=== PATIENT | female | born 1965 | race Caucasian/White ===

== ENCOUNTER 2021-06-23 17:08 | Emergency (ER) | payer OTHER ==
[~2021-06-23] VITALS: Ht 152.4 cm; Wt 99.8 kg
[~2021-06-23 17:08] MED LIST: ALPR0.5T2 PO; SIMV40TA1 PO; SYN.05 PO; TRAZ-343 PO; ZOLP10TA1 PO
--- NOTE | 2021-06-23 17:10 | NUR ---
NELDA ALS TO ER BED 2
[2021-06-23 17:23] VITALS: BP 115/62
--- NOTE | 2021-06-23 17:32 | NUR ---
56YO F BIBA C/O RIGHT HIP AND SHOULDER PAIN S/P FALL 45 MINS AGO. PT WAS HAVING PHYSICAL THERAPY FOR DROP FOOT WHEN SHE FELL SIDEWAYS, LANDING ON HER RIGHT HIP AND SHOULDER. PAIN 8/10, SHARP AND CRUSHING IN NATURE. DENIES HEAD TRAUMA, LOC. UNABLE TO INSERT IV, GIVEN 100MCG FENTANYL INTRANASALLY EN ROUTE TO ED. IN ED, VSS. AOX4. CLEAR BREATH SOUNDS. LIMITED ROM, RIGHT SHOULDER. NO SWELLING NOTED. UNABLE TO AMBULATE. PT POSITIONED COMFORTABLY IN BED. ERMD MADE AWARE OF PT STATUS. PMH: DVT BILATERAL LOWER EXTREMITIES, PULMONARY EMBOLISM, DROPFOOT (RIGHT), PELVIC FLOOR DYSSYNERGIA, ASTHMA MEDS: XANAX, NEURONTIN, XARALTO, TRAZADONE ALLERGY: SULFA
[2021-06-23] MEDS ORDERED: MORPHINE SULFATE 5 MG/ML VIAL IM ONE (18:40)
--- NOTE | 2021-06-23 19:13 | NUR ---
REPORT GIVEN TO DACIA ROSARIO. ALL CARE TRANSFERRED AT THIS TIME.
--- NOTE | 2021-06-23 19:13 | NUR ---
REPORT RECEIVED FROM DACIA WHITTINGTON FOR CONTINUITY OF PT CARE. AT THIS TIME.
--- NOTE | 2021-06-23 19:18 | NUR ---
X RAY AT BEDSIDE.
--- NOTE | 2021-06-23 19:23 | NUR ---
PT LAYING FLAT SUPINE FOR COMFORT, IN BED LOCKED IN LOWEST POSITION W X2 SIDERAILS UP FOR PT SAFETY. PT REPORTS PAIN WAS IMPROVING FOLLOWING PAIN MEDICATION ADMINISTRATION BUT BEGAN TO WORSEN UPON BEING MOVED AROUND FOR THE XRAY. PT WILL CONTINUE RESTING SUPINE AND SEE IF PAIN RE-SUBSIZES. WILL MAKE NURSE AWARE IF PAIN IS NOT IMPROVING. BREATHING EVEN AND UNLABORED. NAD NOTED, WILL CONTINUE TO MONITOR.
--- NOTE | 2021-06-23 19:58 | NUR ---
PT C/O PAIN 05/24. ERMD MADE AWARE.
[2021-06-23] MEDS ORDERED: oxyCODONE/APAP 5/325 MG 1 TAB TAB PO ONE (20:00)
[2021-06-23 20:56] VITALS: BP 131/52
--- NOTE | 2021-06-23 20:56 | NUR ---
Patient discharged with v/s stable. Written and verbal after care instructions given and explained. Patient verbalized understanding. Ambulatory with steady gait. All questions addressed prior to discharge. Advised to follow up with PMD.
== END 2021-06-23 20:56 | disposition home or self-care (01) ==
LOC: MED 17:08
DX: M79.601 Pain in right arm (principal); M25.551 Pain in right hip; J45.909 Unspecified asthma, uncomplicated; E06.9 Thyroiditis, unspecified; Z88.2 Allergy status to sulfonamides; Z88.8 Allergy status to other drugs, medicaments and biological substances; Z88.6 Allergy status to analgesic agent
CPT/HCPCS: 72170; 73030; 73502; 96372; 99284; J2270